=== PATIENT | female | born 1985 | race Caucasian/White ===

== ENCOUNTER 2018-04-30 21:34 | Emergency (ER) | payer SELFPAY ==
[~2018-04-30] VITALS: Ht 162.6 cm; Wt 69.5 kg
[2018-04-30 21:38] VITALS: BP 130/90; Ht 162.6 cm; Wt 69.5 kg
== END 2018-04-30 21:51 | disposition home or self-care (01) ==
LOC: ED 21:34
DX: K02.9 Dental caries, unspecified (principal)